=== PATIENT | female | born 1995 | race Caucasian/White ===

== ENCOUNTER 2019-05-19 00:07 | Emergency (ER) | payer SELFPAY ==
[~2019-05-19] VITALS: Ht 157 cm; Wt 181.8 kg
[2019-05-19 00:34] LABS: BILIRUBIN,URINE NEGATIVE (NEGATIVE); CLARITY,URINE CLEAR; COLOR,URINE YELLOW; GLUCOSE, URINE (UA) NEGATIVE (NEGATIVE); KETONES,URINE NEGATIVE (NEGATIVE); LEUKOCYTE ESTERASE ,URINE NEGATIVE (NEGATIVE); NITRITE,URINE NEGATIVE (NEGATIVE); PH,URINE 6 (5-9); PROTEIN,URINE 3+ (NEGATIVE)
[2019-05-19 00:48] LABS: BACTERIA,URINE FEW /HPF; WBC,URINE 0-2 /HPF
[2019-05-19 00:50] LABS: BASOPHILS % (AUTO) 0 % (0-10); EOSINOPHILS # (AUTO) 0.1 10^3/uL (0.0-0.3); EOSINOPHILS % (AUTO) 2 % (0-10); HEMATOCRIT 44 % (35-52); HEMOGLOBIN 14.8 G/DL (11.5-16.0); LYMPHOCYTES # (AUTO) 3.1 X 10^3 (1.0-4.0); LYMPHOCYTES % (AUTO) 35 % (12-44); MEAN CORPUSCULAR HEMOGLOBIN 28 PG (25-34); MEAN CORPUSCULAR HGB CONC 34 G/DL (32-36); MEAN CORPUSCULAR VOLUME 83 FL (80-99); MEAN PLATELET VOLUME 10.6 FL (7.4-10.4); MONOCYTES # (AUTO) 0.5 X 10^3 (0.0-1.0); MONOCYTES % (AUTO) 6 % (0-12); NEUTROPHILS # (AUTO) 5.1 X 10^3 (1.8-7.8); NEUTROPHILS % (AUTO) 57 % (42-75); PLATELET COUNT 269 10^3/uL (130-400); RED CELL DISTRIBUTION WIDTH 13.5 % (10.0-14.5); WHITE BLOOD COUNT 8.9 10^3/uL (4.3-11.0)
[2019-05-19 00:57] LABS: AMPHETAMINE SCREEN, URINE NEGATIVE (NEGATIVE); BARBITURATE SCREEN URINE NEGATIVE (NEGATIVE); BENZODIAZEPINES SCREEN URINE NEGATIVE (NEGATIVE); CANNABINOID SCREEN, URINE NEGATIVE (NEGATIVE); COCAINE SCREEN URINE NEGATIVE (NEGATIVE); METHADONE STAT NEGATIVE (NEGATIVE); METHAMPHETAMINE SCREEN URINE S NEGATIVE (NEGATIVE); OPIATE SCREEN URINE NEGATIVE (NEGATIVE); OXYCODONE STAT NEGATIVE (NEGATIVE); PROPOXYPHENE STAT NEGATIVE (NEGATIVE); TRICYCLIC ANTIDEPRESSANTS SCRE NEGATIVE (NEGATIVE)
[2019-05-19 01:01] LABS: INR 0.9 (0.8-1.4); PROTHROMBIN TIME PATIENT 12.6 SEC (12.2-14.7)
[2019-05-19 01:09] LABS: ALANINE AMINOTRANSFERASE 86 U/L (0-55); ALBUMIN 4.5 GM/DL (3.2-4.5); ALKALINE PHOSPHATASE 69 U/L (40-136); BILIRUBIN,TOTAL 0.3 MG/DL (0.1-1.0); BUN/CREATININE RATIO 20; CALCIUM 10.5 MG/DL (8.5-10.1); CARBON DIOXIDE 23 MMOL/L (21-32); CHLORIDE 100 MMOL/L (98-107); CREATININE SERUM 0.79 MG/DL (0.60-1.30); GFR ESTIMATED > 60; GLUCOSE 129 MG/DL (70-105); POTASSIUM 4.2 MMOL/L (3.6-5.0); SODIUM 138 MMOL/L (135-145); TOTAL PROTEIN 8.1 GM/DL (6.4-8.2)
[2019-05-19] MEDS ORDERED: NS 100 ML (IVPB) BAG IV ONE (01:45)
[2019-05-19] MEDS ORDERED: HOLD METFORMIN - RECEIVED CONTRAST 20 ML VIAL IV SCH (01:45)
[2019-05-19] MEDS ORDERED: IOHEXOL 350 MG/ML 100 ML (OMNIPAQUE 350) VIAL IV ONE (01:45)
--- NOTE | 2019-05-19 02:13 | ED Abdominal Pain ---
General Chief Complaint: Abdominal/GI Problems Stated Complaint: LOWER ABD PAIN Nursing Triage Note: Pt ambulates to RM 9 with c/o intermittent right lower abd pain since 1400 this evening that's worse when laying flat or standing up. Pt reports taking naproxen for pain, last taken at 1900. Pt also reports nausea, denies changes in urination or bowel movements. Pt denies any fever/chills but temp is 37.9 upon arrival. Sepsis Screen: Possible Severe Sepsis Risk Source of Information: Patient History of Present Illness Date Seen by Provider: May 19, 2019 Time Seen by Provider: 00:15 Initial Comments PT ARRIVES VIA POV WITH 2 ADULT MALES IN THE ROOM WITH HER C/O RLQ PAIN SINCE 1400 TODAY STATES PAIN COMES AND GOES AND IS WORSE WITH STANDING OR LAYING DOWN STATES PAIN GOT WORSE AROUND 1900 AFTER SHE HAD SEX FOR OVER AN HOUR. DID NOT HAVE PAIN WITH INTERCOURSE, ONLY AFTERWARD PT LATER STATES THAT THEY HAVE ANAL INTERCOURSE, OFTEN BEFORE VAGINAL INTERCOURSE. DO NOT USE CONDOMS. + NAUSEA, NO VOMITING NO DIARRHEA OR CONSTIPATION, HAD NORMAL BM TODAY NO URINARY SYMPTOMS NO VAGINAL DISCHARGE NO KNOWN FEVER OR CHILLS, BUT TEMP IS 100.2 ON ARRIVAL TO ER. LMP 01/18/19--PT STATES SHE HAD A NEGATIVE TEST 2 WEEKS AGO PT GOES ON AT LENGTH, ABOUT BEING CONVINCED THAT SHE IS , AND IS HERE FOR A TEST STATES "I KNOW I'M BECAUSE I FEEL THE SAME WAY I DID WHEN I WAS BEFORE" "I CAN FEEL IT MOVING AROUND AND EVERYTHING" STATES SHE HAD HER CHILD 2 YEARS AGO, AND HAD NEXPLANON IN PLACE AFTER DELIVERY, AND HAD IT REMOVED IN JULY OF THIS YEAR. STATES HER PERIODS HAVE BEEN REGULAR SINCE JULY, UNTIL DECEMBER. PT IS NOT . PT HAS NOT SOUGHT CARE WITH ANYONE REGARDING THIS ISSUE, UNTIL TONIGHT PT DENIES ANY PRIOR HISTORY OF VEGETABLE THINNER PROBLEMS OR PROBLEMS. PT IS DIABETIC BUT HAS NOT BEEN CHECKING HER BLOOD GLUCOSE TOOK NAPROXEN AROUND 1900. NO RELIEF. PCP: CJ. STATES SHE "JUST MOVED HERE FROM [place]" Allergies and Home Medications Allergies Coded Allergies: duloxetine (Verified Allergy, Intermediate, 05/19/19) ketamine (Verified Allergy, Intermediate, 05/19/19) Home Medications Ciprofloxacin HCl 500 Mg Tablet, 500 MG PO BID Prescribed by: BINU LAINEZ on 05/19/19 0259 Metronidazole 500 Mg Tablet, 500 MG PO QID Prescribed by: BINU LAINEZ on 05/19/19 0259 Patient Home Medication List Home Medication List Reviewed: Yes Review of Systems Review of Systems Constitutional: no symptoms reported EENTM: No Symptoms Reported Respiratory: No Symptoms Reported Cardiovascular: No Symptoms Reported Gastrointestinal: See HPI, Abdominal Pain; Denies Constipated, Denies Diarrhea; Nausea; Denies Poor Appetite, Denies Poor Fluid Intake, Denies Vomiting Genitourinary: No Symptoms Reported; Denies Burning, Denies Discharge, Denies Frequency, Denies Flank Pain, Denies Incontinence, Denies Pain, Denies Urgency Musculoskeletal: no symptoms reported; No back pain Skin: no symptoms reported Psychiatric/Neurological: No Symptoms Reported Endocrine: No Symptoms Reported Hematologic/Lymphatic: No Symptoms Reported Past Ffrqbla-Axdzae-Ryidzb Hx Patient Social History Alcohol Use: Occasionally Uses Recreational Drug Use: Yes (HX OF THC) Drug of Choice: HX OF THC Smoking Status: Current Everyday Smoker (< 1 PPD) Type Used: Cigarettes (< 1 PPD) Recent Foreign Travel: No Contact w/Someone Who Travel: No Recent Infectious Disease Expo: No Physical Abuse: No Sexual Abuse: No Mistreated: No Fear: No Seasonal Allergies Seasonal Allergies: No Past Medical History Surgeries: Yes Gallbladder Respiratory: No Cardiac: No Neurological: No Reproductive Disorders: No Female Reproductive Disorders: Denies Sexually Transmitted Disease: No HIV/AIDS: No Genitourinary: No Gastrointestinal: No Musculoskeletal: No Endocrine: Yes (MORBID OBESITY) Diabetes, Non-Insulin dep Cancer: No Psychosocial: No Integumentary: No Blood Disorders: No Physical Exam Vital Signs Vital Signs - First Documented 05/19/19 00:16 Temp 37.9 Pulse 102 Resp 19 B/P (MAP) 163/97 (119) Pulse Ox 98 O2 Delivery Room Air Capillary Refill : Less Than 3 Seconds Height/Weight/BMI Height: '" Weight: lbs. oz. kg; 73.00 BMI Method: General Appearance: no apparent distress, obese (MORBIDLY OBESE), other (PT SITTING UPRIGHT, COMPLETELY STRADDLING THE BED, AND SWINGING LEGS BACK AND FORTH FROM THE SIDES OF THE BED. SMILING. WALKS UPRIGHT AND MOVES WITHOUT DIFFICULTY. DOES NOT APPEAR TO BE IN ANY DISCOMFORT OR DISTRESS. DIRTY, MALODOROUS. ) Neck: normal inspection Respiratory: normal breath sounds, no respiratory distress, no accessory muscle use Cardiovascular: regular rate, rhythm, no murmur Gastrointestinal: soft; No guarding, No rebound; tenderness (DIFFUSE MID AND LOWER ABDOMINAL TENDERNESS, MOST TENDER IN RLQ GENERAL AREA--NO PINPOINT PAIN. ); No mass Genital/Rectal: other (PELVIC EXAM IS VERY LIMITED DUE TO PT'S SIZE--UNABLE TO VIEW CERVIX DUE TO BEING COMPLETELY OBSCURED BY VAGINAL DE PAZ . MODERATE AMOUNT OF WHITE DISCHARGE/SECRETIONS IN VAGINA. BIMANUAL EXAM IS IMPOSSIBLE DUE TO PT'S SIZE. 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 SCARS, SCABS TO LEGS, EXTERNAL GENITAL AREA, ABDOMEN, CHEST AND ARMS. NO SIGNS OF SECONDARY INFECTION. ) Focused Exam Lactate Level 05/19/19 00:40: Lactic Acid Level 1.38 Lactic Acid Level Laboratory Tests Test 05/19/19 00:40 Lactic Acid Level 1.38 MMOL/L (0.50-2.00) Progress/Results/Core Measures Results/Orders Lab Results Laboratory Tests Test 05/19/19 00:26 05/19/19 00:40 05/19/19 02:53 Range/Units Urine Color YELLOW Urine Clarity CLEAR Urine pH 6 5-9 Urine Specific [place] 1.020 1.016-1.022 Urine Protein 3+ H NEGATIVE Urine Glucose (UA) NEGATIVE NEGATIVE Urine Ketones NEGATIVE NEGATIVE Urine Nitrite NEGATIVE NEGATIVE Urine Bilirubin NEGATIVE NEGATIVE Urine Urobilinogen NORMAL NORMAL MG/DL Urine Leukocyte Esterase NEGATIVE NEGATIVE Urine RBC (Auto) NEGATIVE NEGATIVE Urine RBC NONE /HPF Urine WBC 0-2 /HPF Urine Squamous Epithelial Cells 10-25 H /HPF Urine Crystals NONE /LPF Urine Bacteria FEW H /HPF Urine Casts NONE /LPF Urine Mucus MODERATE H /LPF Urine Culture Indicated CULTURE PENDING Urine Opiates Screen NEGATIVE NEGATIVE Urine Oxycodone Screen NEGATIVE NEGATIVE Urine Methadone Screen NEGATIVE NEGATIVE Urine Propoxyphene Screen NEGATIVE NEGATIVE Urine Barbiturates Screen NEGATIVE NEGATIVE Ur Tricyclic Antidepressants Screen NEGATIVE NEGATIVE Urine Phencyclidine Screen NEGATIVE NEGATIVE Urine Amphetamines Screen NEGATIVE NEGATIVE Urine Methamphetamines Screen NEGATIVE NEGATIVE Urine Benzodiazepines Screen NEGATIVE NEGATIVE Urine Cocaine Screen NEGATIVE NEGATIVE Urine Cannabinoids Screen NEGATIVE NEGATIVE White Blood Count 8.9 4.3-11.0 10^3/uL Red Blood Count 5.31 4.35-5.85 10^6/uL Hemoglobin 14.8 11.5-16.0 G/DL Hematocrit 44 35-52 % Mean Corpuscular Volume 83 80-99 FL Mean Corpuscular Hemoglobin 28 25-34 PG Mean Corpuscular Hemoglobin Concent 34 32-36 G/DL Red Cell Distribution Width 13.5 10.0-14.5 % Platelet Count 269 130-400 10^3/uL Mean Platelet Volume 10.6 H 7.4-10.4 FL Neutrophils (%) (Auto) 57 42-75 % Lymphocytes (%) (Auto) 35 12-44 % Monocytes (%) (Auto) 6 0-12 % Eosinophils (%) (Auto) 2 0-10 % Basophils (%) (Auto) 0 0-10 % Neutrophils # (Auto) 5.1 1.8-7.8 X 10^3 Lymphocytes # (Auto) 3.1 1.0-4.0 X 10^3 Monocytes # (Auto) 0.5 0.0-1.0 X 10^3 Eosinophils # (Auto) 0.1 0.0-0.3 10^3/uL Basophils # (Auto) 0.0 0.0-0.1 10^3/uL Prothrombin Time 12.6 12.2-14.7 SEC INR Comment 0.9 0.8-1.4 Activated Partial Thromboplast Time 27 24-35 SEC Sodium Level 138 135-145 MMOL/L Potassium Level 4.2 3.6-5.0 MMOL/L Chloride Level 100 98-107 MMOL/L Carbon Dioxide Level 23 21-32 MMOL/L Anion Gap 15 H 5-14 MMOL/L Blood Urea Nitrogen 16 7-18 MG/DL Creatinine 0.79 0.60-1.30 MG/DL Estimat Glomerular Filtration Rate > 60 BUN/Creatinine Ratio 20 Glucose Level 129 H 70-105 MG/DL Lactic Acid Level 1.38 0.50-2.00 MMOL/L Calcium Level 10.5 H 8.5-10.1 MG/DL Corrected Calcium 10.1 8.5-10.1 MG/DL Total Bilirubin 0.3 0.1-1.0 MG/DL Aspartate Amino Transf (AST/SGOT) 47 H 5-34 U/L Alanine Aminotransferase (ALT/SGPT) 86 H 0-55 U/L Alkaline Phosphatase 69 40-136 U/L Total Protein 8.1 6.4-8.2 GM/DL Albumin 4.5 3.2-4.5 GM/DL Micro Results Microbiology 05/19/19 Influenza Types A,B Antigen ([place]) - Final, Complete My Orders Orders - BINU LAINEZ DO Urine Bedside (05/19/19:15) Ua Culture If Indicated (05/19/19) Cbc With Automated Diff (05/19/19) Comprehensive Metabolic Panel (05/19/19) Blood Culture (05/19/19) Urine Culture (05/19/19) Protime With Inr (05/19/19) Partial Thromboplastin Time (05/19/19) Ed Iv/Invasive Line Start (05/19/19) Ed Iv/Invasive Line Start (05/19/19) Vital Signs Adult Sepsis Patie Q15M (05/19/1923) Remove Rings In Anticipation O (05/19/19) Lactic Acid Analyzer (05/19/19) Influenza A And B Antigens (05/19/19) Drug Screen Stat (Urine) (05/19/1923) Ct Abd/Pelv W (Appendicitis) (05/19/19 01:10) Abdomen, Flat & Upright/Decub (05/19/19 01:10) Iohexol Injection (Omnipaque 350 Mg/Ml 1 (05/19/19 01:45) Received Contrast (Hold Metformin- Contr (05/19/19 01:45) Ns (Ivpb) (Sodium Chloride 0.9% Ivpb Bag (05/19/19 01:45) Ceftriaxone For Iv Use (Rocephin For I (05/19/19 02:45) Azithromycin Tablet (Zithromax Tablet) (05/19/19 02:45) Ketorolac Injection (Toradol Injection) (05/19/19 02:45) Neisseria Gonorrhea Swab (05/19/19 02:42) Chlam Dna Probe (05/19/19 02:42) Genital Culture (05/19/19 02:42) Wet Prep (05/19/19 02:42) Kevin Prep (05/19/19 02:42) Medications Given in ED Current Medications Medications Dose Ordered Sig/Devika Route Start Time Stop Time Status Last Admin Dose Admin Azithromycin 1,000 mg ONCE ONCE PO 05/19/19 02:45 05/19/19 02:46 DC 05/19/19 02:54 1,000 MG Ceftriaxone Sodium 1000 mg/ Sterile Water 10 ml @ 200 mls/hr ONCE ONCE IV 05/19/19 02:45 05/19/19 02:47 DC 05/19/19 02:50 200 MLS/HR Ketorolac Tromethamine 30 mg ONCE ONCE IVP 05/19/19 02:45 05/19/19 02:46 DC 05/19/19 02:50 30 MG Vital Signs/I&O 05/19/19 05/19/19 00:16 03:25 Temp 37.9 37.9 Pulse 102 94 Resp 19 20 B/P (MAP) 163/97 (119) 130/81 (119) Pulse Ox 98 97 O2 Delivery Room Air Blood Pressure Mean: 119 Diagnostic Imaging Comments ABDOMEN XRAYS--NO ACUTE PROCESS, PENDING RADIOLOGIST REVIEW CT ABDOMEN/PELVIS--NO ACUTE PROCESS, PER [facility] VIA FAX AT [id number] Reviewed: Reviewed by Me Departure Impression Primary Impression: Lower abdominal pain Additional Impression: PID (pelvic inflammatory disease) Disposition: 01 HOME, SELF-CARE Condition: Stable Departure-Patient Inst. Referrals: [facility] (PCP/Family) Primary Care Physician Patient Instructions: Acute Abdomen (Belly Pain), Adult (DC), Pelvic Inflammatory Disease (DC) Add. Discharge Instructions: NO INTERCOURSE OF ANY KIND UNTIL YOU ARE RECHECKED AND CLEARED BY YOUR DR AT [facility] TYLENOL AND MOTRIN NEEDED FOR PAIN OR FEVER LOTS OF CLEAR LIQUIDS HOLD METFORMIN FOR 48 HOURS FOLLOW UP WITH [facility] IN 2-3 DAYS FOR FURTHER CARE All discharge instructions reviewed with patient and/or family. Voiced understanding. Scripts Metronidazole (Flagyl) 500 Mg Tablet 500 MG PO QID for FOR INFECTION, #40 TAB Prov: BINU LAINEZ DO 05/19/19 Ciprofloxacin HCl (Cipro) 500 Mg Tablet 500 MG PO BID, #20 TAB Prov: BINU LAINEZ DO 05/19/19 BINU LAINEZ DO May 19, 2019 02:12
[2019-05-19] MEDS ORDERED: cefTRIAXone FOR IV USE 1,000 MG in WATER (STERILE) FOR INJECTION 10 ML IV ONE (02:45)
[2019-05-19] MEDS ORDERED: KETOROLAC 30 MG/ML VIAL IVP ONE (02:45)
[2019-05-19] MEDS ORDERED: AZITHROMYCIN 250 MG TAB (ZITHROMAX) PO ONE (02:45)
[2019-05-19] MEDS ORDERED: CIPR-225 PO (02:59)
[2019-05-19] MEDS ORDERED: METR500T PO (02:59)
[2019-05-19 03:25] VITALS: BP 130/81
--- NOTE | 2019-05-19 07:02 | Diagnostic Imaging Report ---
EXAMINATION: Abdominal radiographs, upright and supine views, 3 images. DATE: May 19, 2019. CLINICAL INDICATION: 23-year-old female, abdominal pain. COMPARISON: None. COMMENTS: The upright is significantly technically limited relating to difficulties with exposure. This does limit evaluation for free intraperitoneal air. There are no grossly distended gas filled segments of bowel. Right upper quadrant surgical clips likely relate to prior cholecystectomy. There is no identified abnormal radiodensity overlying the kidneys or expected positions of the ureters. 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 IMPRESSION: 1. No identified acute abdominal radiographic abnormality. Dictated by: Dictated on workstation # [id number]
--- NOTE | 2019-05-19 07:17 | Diagnostic Imaging Report ---
PROCEDURE: CT abdomen and pelvis with contrast, rule out appendicitis. TECHNIQUE: Multiple contiguous axial images were obtained through the abdomen and pelvis after the administration of intravenous contrast. DATE: May 19, 2019. COMPARISON: Abdominal radiograph April 19, 2019. INDICATION: 23-year-old female, abdominal pain. FINDINGS: The visualized portions of the lung bases are clear. The heart is not enlarged. There is no pericardial effusion. There is diffuse fatty infiltration of the liver. The outer liver contours are not grossly nodular. There is no identified liver lesion. The main, right, and left portal veins are patent. The patient is status post cholecystectomy. There is no intrahepatic or extrahepatic bile duct dilation. The main pancreatic duct is not abnormally dilated. Unremarkable appearance of the pancreatic parenchyma. The spleen is normal in size. The adrenal glands are unremarkable. Unremarkable appearance of the renal parenchyma. The urinary collecting systems are not distended. There is no identified renal or ureteral stone. Urinary bladder is collapsed and not well evaluated. There is a low-attenuation lesion in the right adnexa on axial image 93 measuring up to 3.2 cm in size. The intestinal tract is not distended. The appendix is well seen on axial image 82 and adjacent sequential images. There is no evidence of acute appendicitis. There is a broad-based anterior abdominal wall fat-containing hernia near the level of the umbilicus without complication. There is no identified abnormally enlarged lymph node in the abdomen or pelvis which meets CT size criteria for adenopathy. There is no identified acute bony abnormality. IMPRESSION: CT ABDOMEN AND PELVIS. 1. Diffuse fatty infiltration of the liver. 2. No identified acute abnormality in the abdomen or pelvis. 3. Broad-based fat containing periumbilical hernia without apparent complication. 4. Low-attenuation lesion in the right adnexa most likely relating to an ovarian cyst measuring 3.2 cm in size although not able to be definitively classified on CT. Dictated by: Dictated on workstation # [id number]
== END 2019-05-19 01:48 | disposition home or self-care (01) ==
LOC: ER 00:10
DX: N73.9 Female pelvic inflammatory disease, unspecified (principal); E11.9 Type 2 diabetes mellitus without complications; E66.01 Morbid (severe) obesity due to excess calories; F17.210 Nicotine dependence, cigarettes, uncomplicated; Z88.8 Allergy status to other drugs, medicaments and biological substances; Z68.45 Body mass index [BMI] 70 or greater, adult
CPT/HCPCS: 36415; 74019; 74177; 80053; 80306; 81000; 83605; 84703; 85025; 85610; 85730; 87040; 87070; 87077; 87088; 87205; 87210; 87491; 87591; 87804